=== PATIENT | male | born 1975 | race Caucasian/White ===

== ENCOUNTER → 2022-12-15 | Outpatient (CLI) | payer OTHER | LOC: M PLAIMG 07:58 | PROVIDERS: ATTEND Otolaryngology | DX: H92.03 Otalgia, bilateral (principal) ==

== ENCOUNTER 2023-02-26 07:04 | Day surgery (SDC) | payer OTHER ==
[~2023-02-26] VITALS: Ht 182.9 cm; Wt 140.6 kg
[~2023-02-26 07:04] MED LIST: ALEV220T22 PO; FENO160T10; LISI10TA22 PO; LR 1,000 ML IV SCH; OMEG1CAP85; SIMV40TA20
[2023-02-26] MEDS ORDERED: CIPRODEX OTIC SUSP 7.5ML As Ordered ONE (07:15)
[2023-02-26] MEDS ORDERED: ONDANSETRON 4MG 2ML VIAL As Ordered ONE (07:16)
[2023-02-26] MEDS ORDERED: propofoL 200 MG/20 ML VIAL As Ordered ONE (07:16)
[2023-02-26] MEDS ORDERED: fentaNYL 100 MCG/2 ML INJECTION As Ordered ONE (07:16)
[2023-02-26] MEDS ORDERED: LIDOCAINE 2% 100MG/5ML SDV (FOR ANES.) As Ordered ONE (07:16)
[2023-02-26] MEDS ORDERED: MIDAZOLAM INJ 2MG/2ML VIAL As Ordered ONE (07:16)
[2023-02-26] MEDS ORDERED: ACETAMINOPHEN 1000MG 100ML IV BAG As Ordered ONE (07:19)
[2023-02-26] MEDS ORDERED: ONDANSETRON 4MG 2ML VIAL IV PRN (08:55)
[2023-02-26] MEDS ORDERED: fentaNYL 100 MCG/2 ML INJECTION IV PRN (08:55)
[2023-02-26] MEDS ORDERED: LR 1,000 ML IV SCH (08:55)
[2023-02-26] MEDS ORDERED: MEPERIDINE 25 MG/ML 1ML VIAL IV PRN (08:55)
[2023-02-26 09:30] VITALS: BP 127/68
[2023-02-26 09:58] VITALS: TEMP 98.9; O2SAT 100
== END 2023-02-26 10:00 | disposition home or self-care (01) ==
LOC: M SDC 07:04
PROVIDERS: ATTEND Otolaryngology
DX: H69.81 Other specified disorders of Eustachian tube, right ear (principal); I10 Essential (primary) hypertension; E78.00 Pure hypercholesterolemia, unspecified; Z79.899 Other long term (current) drug therapy; F17.220 Nicotine dependence, chewing tobacco, uncomplicated
CPT/HCPCS: 69436; J0131; J1100; J2250; J2405; J3010

== ENCOUNTER → 2023-10-20 | Outpatient (CLI) | payer BC ==
[~2023-10-20] MED LIST changes: +ISOVUE-370 76% 100ML VIAL As Ordered ONE; -LR 1,000 ML IV SCH
== END ==
LOC: M RAD 12:20
PROVIDERS: ATTEND Otolaryngology
DX: H92.01 Otalgia, right ear (principal); G50.1 Atypical facial pain
CPT/HCPCS: 70481; 70487; Q9967